=== PATIENT | female | born 1980 | race Hispanic/Latino ===

== ENCOUNTER 2025-07-01 16:51 | Emergency (ER) | payer SELFPAY ==
--- NOTE | ~2025-07-01 | US_ITS ---
EXAMINATION: US pelvic complete w TV, 07/01/2025 19:15 DENTAL SECRETARY HISTORY: Right ovarian cyst, possible torsion Comparison: None Technique: Kumari-scale and color Doppler images were obtained. Findings: Uterus: Post hysterectomy. . Right Ovary:Right ovary 4.1 x 3.5 x 3.9 cm, there is a complex cystic lesion measuring 3.6 x 3.2 cm with multiple septations. Left Ovary: Left ovary surgically absent. Free Fluid: Minimal free fluid noted in the right adnexal space. Impression: Probable functional hemorrhagic right ovarian cyst. Follow-up recommended with ultrasound in 6 weeks to assess resolution Reviewed, dictated and finalized at location P. AL SECRETARY Impression: Probable functional hemorrhagic right ovarian cyst. Follow-up recommended with ultrasound in 6 weeks to assess resolution
--- NOTE | ~2025-07-01 | CT_ITS ---
EXAMINATION: CTA chest PE abdomen pel, 07/01/2025 17:40 PLODDING OPERATOR HISTORY: chest pain, RUQ pain COMPARISON: No comparisons available. TECHNIQUE: CTA scan with 3D Reconstructions of the chest, CT of the abdomen and pelvis was performed with contrast Isovue 300, 92cc injected IV. One or more of the following dose reduction techniques were used: automated exposure control, adjustment of the mA and/or kV according to patient size, use of iterative reconstruction technique. Unless otherwise stated, incidental findings do not require dedicated follow up imaging FINDINGS: CT chest: No significant coronary calcification is present ([id number]) LUNGS: Bolus is adequate, there is no pulmonary embolism identified. No tracheomalacia. No bronchiectasis. The lungs are clear. HEART AND PERICARDIUM: Within normal limits. AORTA: Normal caliber aorta. MEDIASTINUM: Unremarkable. THYROID: The thyroid is unremarkable. CT abdomen: LIVER: Liver mild cardiomegaly. The liver is enlarged. Moderate hepatic steatosis. The portal vein is patent. There is no intrahepatic biliary duct dilatation. SPLEEN: Unremarkable, no splenomegaly. KIDNEYS: Right Kidney: Right kidney midpole 2 mm renal calculus, no hydronephrosis. Left Kidney: Left kidney subcentimeter probable renal cysts. ADRENAL GLANDS: Unremarkable. PANCREAS: GALLBLADDER/BILIARY: Unremarkable. No biliary dilatation. STOMACH AND ESOPHAGUS: Small hiatal hernia. BOWEL/MESENTERY: Moderate fecal content. No colitis or diverticulitis. The appendix appears normal. Mesentery normal. No thickened or dilated loops of small bowel. RETROPERITONEUM: Unremarkable AORTA/VASCULATURE: Normal caliber aorta. FREE FLUID OR FREE AIR: No free fluid.. CT pelvis: SOLID ORGANS/REPRODUCTIVE: Post hysterectomy. Cystic right ovarian lesion 4 x 4 cm incompletely evaluated. BLADDER: Within normal limits. LYMPHADENOPATHY: No lymphadenopathy. OSSEOUS STRUCTURES: No acute osseous abnormality.No suspicious lesions. OVERLYING SOFT TISSUES: Unremarkable. IMPRESSION: 1. Negative for pulmonary embolism. No acute process in the chest. 2. No acute intra-abdominal process. 3. Probable functional right ovarian cyst but incompletely evaluated. Pelvic ultrasound is recommended. Reviewed, dictated and finalized at location P. DING OPERATOR IMPRESSION: 1. Negative for pulmonary embolism. No acute process in the chest. 2. No acute intra-abdominal process. 3. Probable functional right ovarian cyst but incompletely evaluated. Pelvic ul trasound is recommended.
[2025-07-01 16:55] VITALS: BP 126/88; PULSE 71; RESP 20; TEMP 36.6; O2SAT 99
--- NOTE | 2025-07-01 17:00 | ECG_ITS ---
Test Date: 2025-07-01 17:07:02 Measurements Intervals [place] Rate: 71 P: 35 MT: 165 QRS: -37 QRSD: 105 T: 4 QT: 385 QTc: 419 Interpretive Statements SINUS RHYTHM LEFT AXIS DEVIATION [QRS AXIS < -30] S1-S2-S3 PATTERN, CONSISTENT WITH PULMONARY DISEASE, RVH, OR NORMAL VARIANT MINIMAL VOLTAGE CRITERIA FOR LVH, CONSIDER NORMAL VARIANT [MEETS CRITERIA IN ONE OF: R(aVL), S(V1), R(V5), R(V5/V6)+S(V1)] No previous ECG available for comparison Electronically Signed On 07-01-2025 18:59:36 ADMINISTRATION SPECIALIST by Soto Silva M.D.
[2025-07-01 17:20] LABS: Hematocrit 41.0 % (37.0-47.0); Hemoglobin 13.9 g/dL (12.0-15.0); Immature Granulocyte Percent A 0.3 % (0-0.5); Lymphocytes Absolute Auto 3.03 K/mm3 (0.9-3.2); Mean Corpuscular HGB Conc 33.9 g/dl (32-36); Mean Corpuscular Hemoglobin 30.5 pg (26-34); Mean Corpuscular Volume 89.9 fl (80-100); Nucleated Red Blood Cells Absolute Auto 0.000 K/mm3 (0.0-0.012); Nucleated Red Blood Cells Perc 0.0 % (0.0-0.2); Platelet Count Result 320 k/mm3 (150-375); Red Blood Count 4.56 M/mm3 (4.2-5.4); White Blood Count 9.6 K/mm3 (4.5-10.0)
--- NOTE | 2025-07-01 17:21 | ED.GENADULT ---
HPI - General Adult General Chief complaint: Chest Pain Stated complaint: HOLT, chest pain since yesterday, fever Time Seen by Provider: 07/01/25 17:00 History of Present Illness HPI narrative: 44-year-old female present to the emergency department for evaluation for headache, right upper quadrant pain and left-sided chest pain. Patient reports the headache is chronic and has been occurring intermittently over the last few days. Patient states the left-sided chest pain and right upper quadrant pain started a few days ago. She reports that she does still have her gallbladder denies any prior history of cholecystectomy. Patient denies any history of pancreatitis. Patient states she does have a prior history of CT when she was in [facility] but denies having any cardiac stents. Patient denies any prior history of kidney stones, pulmonary embolism, DVT. Related Data Allergies Allergy/AdvReac Type Severity Reaction Status Date / Time No Known Allergies Allergy Verified 07/01/25 17:17 Review of Systems Review of Systems: All systems reviewed & are unremarkable except as noted in HPI and below Exam Narrative: APPEARANCE: Well appearing, no pain, no distress, well-nourished. HEAD: normocephalic, atraumatic. EYES: PERRLA/EOMI, conjunctivae clear. NOSE: Normal no drainage EARS:TMS clear with good light reflex. THROAT: Pharynx clear, no exudate. NECK: Supple. No adenopathy, no masses. RESPIRATORY: Airway patent, respirations nonlabored. Clear to auscultation bilaterally, no rales, rhonchi, wheezing. CARDIOVASCULAR: Regular rate and rhythm without murmurs rubs or gallops. ABDOMINAL: Diffuse upper abdominal tenderness to palpation MUSCULOSKELETAL: Moves all extremities. Strength/ROM intact, No edema, No calf tenderness. NEURO: Alert. Cranial nerves II through XII intact. Good gait. Good coordination SKIN: Warm, dry. Normal Color Course Vital Signs Vital signs: Vital Signs Temperature 36.6 C 07/01/25 16:55 Pulse Rate 71 07/01/25 16:55 Respiratory Rate 20 07/01/25 16:55 Blood Pressure 126/88 07/01/25 16:55 Pulse Oximetry 99 07/01/25 16:55 Oxygen Delivery Room Air 07/01/25 16:55 Temperature 36.6 C 07/01/25 16:55 Pulse Rate 61 07/01/25 18:30 Respiratory Rate 16 07/01/25 18:30 Blood Pressure 100/61 07/01/25 18:30 Pulse Oximetry 95 07/01/25 18:30 Oxygen Delivery Room Air 07/01/25 17:03 Medical Decision Making [facility] Narrative Medical decision making narrative: 44-year-old Niuean-speaking female presents emergency department for evaluation for left shoulder, right upper quadrant pain. Patient is currently afebrile with no leukocytosis and hemoglobin of 13.9. Patient has an INR of 1.0. Patient did have a mildly elevated blood sugar of 276 but patient has normal T bili AST and alk-phos with elevated lipase. CTA pulmonary embolism study was ordered of her chest this was negative for PE. Scan was concerning for a right-sided ovarian cyst on ultrasound was ordered to evaluate for torsion. At time of sign-out ultrasound and delta troponin are pending. Vital Signs Vital Signs: Vital Signs Temperature 36.6 C 07/01/25 16:55 Pulse Rate 71 07/01/25 16:55 Respiratory Rate 20 07/01/25 16:55 Blood Pressure 126/88 07/01/25 16:55 Pulse Oximetry 99 07/01/25 16:55 Oxygen Delivery Room Air 07/01/25 16:55 Temperature 36.6 C 07/01/25 16:55 Pulse Rate 61 07/01/25 18:30 Respiratory Rate 16 07/01/25 18:30 Blood Pressure 100/61 07/01/25 18:30 Pulse Oximetry 95 07/01/25 18:30 Oxygen Delivery Room Air 07/01/25 17:03 Lab Data 07/01/25 17:14 07/01/25 17:43 Labs: Lab Results 07/01/25 07/01/25 07/01/25 Range/Units 17:14 17:29 17:43 WBC 9.6 (4.5-10.0) K/mm3 RBC 4.56 (4.2-5.4) M/mm3 Hgb 13.9 (12.0-15.0) g/dL Hct 41.0 (37.0-47.0) % MCV 89.9 (80-100) fl MCH 30.5 (26-34) pg MCHC 33.9 (32-36) g/dl RDW 12.3 (11.5-14.5) % Plt Count 320 (150-375) k/mm3 MPV 9.6 (7.4-10.4) fl Immature Gran % (Auto) 0.3 (0-0.5) % Neut % (Auto) 58.4 (45.5-73.1) % Lymph % (Auto) 31.7 (18.3-44.2) % [place] % (Auto) 6.1 (2.6-8.5) % Eos % (Auto) 3.2 (0-4.4) % Baso % (Auto) 0.3 (0.2-1.2) % Lymph # (Auto) 3.03 (0.9-3.2) K/mm3 [place] # (Auto) 0.6 (0.1-0.6) K/mm3 Eos # (Auto) 0.3 (0-0.3) K/mm3 Baso # (Auto) 0.0 (0.0-0.1) K/mm3 Abs Immat Gran (auto) 0.03 (0.00-0.031) K/mm3 Absolute Neuts (auto) 5.6 (1.3-6.7) K/mm3 Absolute Nucleated RBC 0.000 (0.0-0.012) K/mm3 Nucleated RBC % 0.0 (0.0-0.2) % PT 13.2 (11.1-14.7) Seconds INR 1.0 APTT 27.8 (22.3-36.8) Seconds Sodium 135 L (137-145) mmol/L Potassium 3.9 (3.4-5.0) mmol/L Chloride 106 (98-107) mmol/L Carbon Dioxide 20 L (22-30) mmol/L Anion Gap 9 (4-12) mmol/L BUN 14 (7-17) mg/dL Creatinine 0.51 L 0.50 L (0.7-1.0) mg/dL Estim Creat Clear Calc Not Reportable Not Reportable Estimated GFR > 60 > 60 (59 - ) Glucose 276 H (65-110) mg/dL Calcium 9.2 (8.4-10.2) mg/dL Total Bilirubin 0.5 (0.2-1.3) mg/dL AST 28 (14-36) U/L ALT 45 H (6-35) U/L Alkaline Phosphatase 71 (38-126) U/L Troponin I < 0.012 (0.000-0.034) ng/mL Total Protein 8.0 (6.3-8.2) g/dL Albumin 4.6 (3.5-5.1) g/dL Lipase 146 (23-300) U/L Urine Color Yellow (Yellow) Urine Appearance Clear (Clear) Urine pH 6.5 (5.0-9.0) Ur Specific [place] 1.034 (1.001-1.035) Urine Protein Negative (Negative) mg/dL Urine Glucose (UA) 3+ H (Negative) mg/dL Urine Ketones Negative (Negative) mg/dL Ur Blood (Man) 2+ H (Negative) Urine Nitrate Negative (Negative) Urine Bilirubin Negative (Negative) Urine Urobilinogen 0.2 (<2.0) mg/dL Leukocyte Esterase Rfl Negative (Negative) SWETHA/UL Urine RBC 51-100 H (0-2) /hpf Urine WBC 0-5 (0-3) /hpf Ur Squamous Epith Cells Few (Few) /hpf Urine Bacteria None seen /hpf Urine Casts 0-2 POC Urine HCG, Qual Negative (Negative) 07/01/ Range/Units 20:31 WBC (4.5-10.0) K/mm3 RBC (4.2-5.4) M/mm3 Hgb (12.0-15.0) g/dL Hct (37.0-47.0) % MCV (80-100) fl MCH (26-34) pg MCHC (32-36) g/dl RDW (11.5-14.5) % Plt Count (150-375) k/mm3 MPV (7.4-10.4) fl Immature Gran % (Auto) (0-0.5) % Neut % (Auto) (45.5-73.1) % Lymph % (Auto) (18.3-44.2) % [place] % (Auto) (2.6-8.5) % Eos % (Auto) (0-4.4) % Baso % (Auto) (0.2-1.2) % Lymph # (Auto) (0.9-3.2) K/mm3 [place] # (Auto) (0.1-0.6) K/mm3 Eos # (Auto) (0-0.3) K/mm3 Baso # (Auto) (0.0-0.1) K/mm3 Abs Immat Gran (auto) (0.00-0.031) K/mm3 Absolute Neuts (auto) (1.3-6.7) K/mm3 Absolute Nucleated RBC (0.0-0.012) K/mm3 Nucleated RBC % (0.0-0.2) % PT (11.1-14.7) Seconds INR APTT (22.3-36.8) Seconds Sodium (137-145) mmol/L Potassium (3.4-5.0) mmol/L Chloride (98-107) mmol/L Carbon Dioxide (22-30) mmol/L Anion Gap (4-12) mmol/L BUN (7-17) mg/dL Creatinine (0.7-1.0) mg/dL Estim Creat Clear Calc Estimated GFR (59 - ) Glucose (65-110) mg/dL Calcium (8.4-10.2) mg/dL Total Bilirubin (0.2-1.3) mg/dL AST (14-36) U/L ALT (6-35) U/L Alkaline Phosphatase (38-126) U/L Troponin I < 0.012 (0.000-0.034) ng/mL Total Protein (6.3-8.2) g/dL Albumin (3.5-5.1) g/dL Lipase (23-300) U/L Urine Color (Yellow) Urine Appearance (Clear) Urine pH (5.0-9.0) Ur Specific [place] (1.001-1.035) Urine Protein (Negative) mg/dL Urine Glucose (UA) (Negative) mg/dL Urine Ketones (Negative) mg/dL Ur Blood (Man) (Negative) Urine Nitrate (Negative) Urine Bilirubin (Negative) Urine Urobilinogen (<2.0) mg/dL Leukocyte Esterase Rfl (Negative) SWETHA/UL Urine RBC (0-2) /hpf Urine WBC (0-3) /hpf Ur Squamous Epith Cells (Few) /hpf Urine Bacteria /hpf Urine Casts POC Urine HCG, Qual (Negative) Discharge Plan Discharge Clinical Impression: Chest pain, Abdominal pain, Ovarian cyst Patient Disposition: Home Condition: Stable Instructions: Antibiotic Form, Chest Pain (ED), Ovarian Cyst (ED), Abdominal Pain (ED) Additional Instructions: Please follow-up your primary care provider the ultrasound showed that she had an ovarian cyst on your right ovary. It is recommended that you follow-up with your director utilization management to ensure that this resolves Patient Language: Niuean Follow-up/Referrals: Javier,JEANETTE De La Cruz [Non-Staff] Omega Brewster MD [Physician, BUYING INTERN] PHYSICIAN NOT ON STAFF,NONSTAFF [Primary Care Provider] Neil Thompson MD [Physician, Family Practice] Time of Disposition: 21:21 Sign Out Sign Out Data: Patient Sign Out occurred on 07/01/25 at 19:05. Patient's care was discussed, and care was transferred from Robert Beltrán MD to Jose Luis Ledesma MD.
[2025-07-01 17:26] VITALS: BP 103/71; PULSE 62; RESP 19; O2SAT 97
[2025-07-01] MEDS: ASPIRIN 81 MG CHEWABLE TABLET 324 MG PO (17:27)
[2025-07-01] MEDS: HYDROmorphone HCL INJ (*CRX) 1 MG/ML SYR 0.5 MG IV PUSH (17:28)
[2025-07-01 17:31] LABS: BEDSIDEPREGUCG Negative (Negative)
[2025-07-01 17:32] LABS: INR 1.0; Prothrombin Time 13.2 Seconds (11.1-14.7)
[2025-07-01 17:33] LABS: Partial Thromboplastin Time 27.8 Seconds (22.3-36.8)
[2025-07-01 17:34] LABS: Alanine Aminotransferase 45 U/L (6-35); Albumin Level 4.6 g/dL (3.5-5.1); Alkaline Phosphatase 71 U/L (38-126); Anion Gap 9 mmol/L (4-12); Aspartate Amino Transferase 28 U/L (14-36); Bilirubin,Total 0.5 mg/dL (0.2-1.3); Blood Urea Nitrogen 14 mg/dL (7-17); Calcium 9.2 mg/dL (8.4-10.2); Carbon Dioxide 20 mmol/L (22-30); Chloride 106 mmol/L (98-107); Estimated Glomerular Filt Rate > 60; Glucose 276 mg/dL (65-110); Lipase 146 U/L (23-300); Potassium 3.9 mmol/L (3.4-5.0); Sodium 135 mmol/L (137-145); Total Protein 8.0 g/dL (6.3-8.2)
[2025-07-01 17:44] LABS: Troponin I < 0.012 ng/mL (0.000-0.034)
[2025-07-01 18:03] LABS: Add Urine Microscopic? YES; Appearance Urine Clear (Clear); Glucose Urine UA 3+ mg/dL (Negative); Leukocyte Esterase Ur Negative LEU/UL (Negative); Nitrate Urine Negative (Negative); Non Pathogenic Casts 0-2; Specific Grav Ur 1.034 (1.001-1.035)
[2025-07-01 18:30] VITALS: BP 100/61; PULSE 61; RESP 16; O2SAT 95
[2025-07-01 21:05] LABS: Troponin I < 0.012 ng/mL (0.000-0.034)
[2025-07-01 23:19] LABS: Estimated Glomerular Filt Rate > 60
== END 2025-07-01 21:38 | disposition home or self-care (01) ==
PROVIDERS: Emergency Medicine; Emergency Provider Emergency Medicine
DX: N83.201 Unspecified ovarian cyst, right side (principal); R07.9 Chest pain, unspecified; I25.2 Old myocardial infarction; R94.31 Abnormal electrocardiogram [ECG] [EKG]
CPT/HCPCS: 36415; 71275; 74177; 76830; 76856; 80053; 81001; 81025; 83690; 84484; 85025; 85610; 85730; 93005; 96374; 99284; A9270; J1171; Q9967